=== PATIENT | male | born 1950 | race Caucasian/White ===

== ENCOUNTER → 2023-10-11 14:23 | Outpatient (REF) | payer MEDICARE, SELFPAY | LOC: RCS 14:23 | PROVIDERS: ATTENDING PHYSICIAN Internal Medicine Cardiovascular Disease | DX: I49.3 Ventricular premature depolarization (principal); I25.10 Atherosclerotic heart disease of native coronary artery without angina pectoris; I25.2 Old myocardial infarction | CPT/HCPCS: 93017; 93350 ==

== ENCOUNTER 2023-11-06 21:45 | Emergency (ER) | payer MEDICARE, SELFPAY ==
[2023-11-06 21:45] VITALS: BMI 25.0
[2023-11-06 21:46] VITALS: BP 194/98
[2023-11-06 22:08] VITALS: BP 146/78
--- NOTE | 2023-11-06 22:11 | ED.GENMED ---
History of Present Illness
<KUSH Adams - Last Filed: 11/06/23 22:29>
General
Chief Complaint: Blood Pressure Problem
Source: patient
Exam Limitations: none
Time Seen by Provider: 11/06/23 21:52
Nursing documentation reviewed up to this point in time: agreed with
Travel History
Have you had any contact with someone who has COVID-19?: No
Do you have any symptoms of coronavirus? Fever > 100 degrees, chills, cough, shortness of breath, sore throat, loss of taste or smell, muscle aches, or headache?: No
History of Present Illness
History of Present Illness:
73 y/o M with history of a fib presents to ED complaining of elevated BP at home. Patient states his BP around 1800 was 150/70 and then later in the night was 170/100. Patient states his usual readings at home are 120/80. Patient sees health and fitness professor,
Dr. Mtz, for his a fib and elevated BP. He is currently on Losaratan 50mg, Metoprolol 25mg (2 pills in morning, 1 at night), and Amiodarone 200mg. Patient states metoprolol was recently increased by his health and fitness professor due to increased palpitations
for his a fib. Patient states he took all his pills today. Losartan and Metoprolol last taken 1 hour ago. Amiodarone taken in the morning. Patient is worried about elevated BP because patient takes Eliquis and is currently being follow for yearly
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 Patient states his last MRI was last and showed no change. He also had a CT over the summer that showed no changes. Patient aneurysm is follow by his family doctor. He did report a
mild headache today but states it has since resolved. He denies chest pain, LOC, dizziness, palpitations, SOB, nausea, vomiting, or blurry vision.
If applicable-neuro sx onset
Onset of symptoms known: Yes
Date of onset of symptoms: 11/06/23
Past History
<Celeste Alanis STNM - Last Filed: 11/06/23 22:29>
Past History
ED Past Medical History: Arrthythmia (Atrial fibrillation), CAD, HTN and Other (JEANINE ANEURSYM (SMALL))
ED Past Surgical History: Cholecystectomy
Social History
Tobacco: Non-smoker
Alcohol: Occasional
Drug: None
Personal:
Living: with family
Employment: Retired
Review of Systems
<Guillaumealex Alanis NM - Last Filed: 11/06/23 22:29>
Review of Systems
Allergies reviewed?: Yes
All Other Systems: ROS reviewed and negative except as documented in HPI and ROS
Constitutional: Reports no symptoms
EENT: Reports no symptoms
Respiratory: Reports no symptoms
Cardiac: Reports no symptoms
ABD/GI: Reports no symptoms
: Reports no symptoms
Musculoskeletal: Reports no symptoms
Skin: Reports no symptoms
Neurological: Reports no symptoms
Endocrine: Reports no symptoms
Hematologic/Lymphatic: Reports no symptoms
Psychiatric: Reports no symptoms
Phy Exam
<Guillaumealex Alanis, SREEKANTH - Last Filed: 11/06/23 22:29>
General Physical Exam
General Presentation: well appearing and no apparent distress
General age: appears stated age
General Skin: warm and dry
General Habitus: normal
General Mental: alert
General Hydration: appears well hydrated
ENT Exam
ENT Exam: EOMI, pharynx normal and neck supple
Eye Exam
Eye Exam: PERRL, EOMI, cornea clear and conjunctiva normal
Cardiovascular Exam
Cardiovascular Exam: regular rate/rhythm, no edema, no gallop, no murmur and normal peripheral pulses
Pulmonary Exam
Pulmonary Exam: lungs clear, no respiratory distress, no rales, no crackles and no rhonchi
Gastrointestinal Exam
Gastrointestinal Exam: non tender, soft and non distended
Neurological Exam
Neurological Exam: alert and oriented x3
Musculoskeletal Exam
Musculoskeletal Exam: full ROM
Skin Exam
Skin Exam: normal color, warm/dry and no rash
Psychiatric Exam
Psychiatric Exam: normal mood/affect
Course
<Guillaumealex Alanis [facility] - Last Filed: 11/06/23 22:29>
Orders/Labs/Results
Orders:
Orders
11/06/23 21:50
Electrocardiogram (*1) Urgent
Reason for Study: Hypertension, Benign
EKG- Treatment ONCE
11/06/23 23:19
Complete Blood Count/With Diff Urgent
Comprehensive Metabolic Panel Urgent
Magnesium Urgent
PTT Urgent
Prothrombin Time Urgent
TSH Urgent
Troponin I Urgent
Abnormal Lab Results
11/06/23
23:19
RBC 4.37 L 10^6/uL
(4.70-6.10)
MCH 31.6 H pg
(27.0-31.0)
Absolute Neuts (auto) 8.2 H 10^3/uL
(1.4-6.5)
Absolute Monos (auto) 0.8 H 10^3/uL
(0.1-0.6)
Neutrophils % 75.4 H %
(42.2-75.2)
Lymphocytes % 14.4 L %
(20.5-51.1)
PT 16.6 H Sec
(11.4-14.6)
Sodium 134 L mmol/L
(135-145)
Glucose 116 H mg/dl
(70-99)
11/06/23 23:19
11/06/23 23:19
Vital Signs
Initial and Last Documented VS:
Initial Vital Signs
Temp Pulse Resp BP Pulse Ox
98.1 F 78 22 194/98 100
11/06/23 21:46 11/06/23 21:46 11/06/23 21:46 11/06/23 21:46 11/06/23 21:46
Last Documented Vital Signs
Temp Pulse Resp BP Pulse Ox
98.1 F 69 20 126/76 98
11/06/23 21:46 11/07/23 00:45 11/07/23 00:45 11/07/23 00:00 11/06/23 22:42
<James Walker, DO - Last Filed: 11/08/23 21:58>
Orders/Labs/Results
Orders:
Orders
11/06/23 21:50
Electrocardiogram (*1) Urgent
Reason for Study: Hypertension, Benign
EKG- Treatment ONCE
11/06/23 23:19
Complete Blood Count/With Diff Urgent
Comprehensive Metabolic Panel Urgent
Magnesium Urgent
PTT Urgent
Prothrombin Time Urgent
TSH Urgent
Troponin I Urgent
Abnormal Lab Results
11/06/23
23:19
RBC 4.37 L 10^6/uL
(4.70-6.10)
MCH 31.6 H pg
(27.0-31.0)
Absolute Neuts (auto) 8.2 H 10^3/uL
(1.4-6.5)
Absolute Monos (auto) 0.8 H 10^3/uL
(0.1-0.6)
Neutrophils % 75.4 H %
(42.2-75.2)
Lymphocytes % 14.4 L %
(20.5-51.1)
PT 16.6 H Sec
(11.4-14.6)
Sodium 134 L mmol/L
(135-145)
Glucose 116 H mg/dl
(70-99)
11/06/23 23:19
11/06/23 23:19
Vital Signs
Initial and Last Documented VS:
Initial Vital Signs
Temp Pulse Resp BP Pulse Ox
98.1 F 78 22 194/98 100
11/06/23 21:46 11/06/23 21:46 11/06/23 21:46 11/06/23 21:46 11/06/23 21:46
Last Documented Vital Signs
Temp Pulse Resp BP Pulse Ox
98.1 F 69 20 126/76 98
11/06/23 21:46 11/07/23 00:45 11/07/23 00:45 11/07/23 00:00 11/06/23 22:42
<KUSH Adams - Last Filed: 11/06/23 22:29>
MDM/Problems Addressed
Differential Diagnosis Includes:
Elevated BP
MDM/Problems Addressed:
73 y/o M with history of a fib presenting with elevated BP reading at home. Current BP in office down to 146/78. Will obtain basic labs, troponin and PTT. Patient physical exam findings unremarkable.
<James Walker DO - Last Filed: 11/08/23 21:58>
*Critical Care Note
Total Time (30-74mins, 75-104mins- exclusive of procedures): Not Applicable
ED Attending Note
<KUSH Adams - Last Filed: 11/06/23 22:29>
-
Portions of this chart may have been created with voice recognition software.� Occasional wrong word or��sound alike� substitutions may have occurred due to the inherent limitations of voice recognition software.
<James Walker DO - Last Filed: 11/08/23 21:58>
ED Attending Note
Patient seen and examined by attending physician: Yes
I performed the substantive portion of visit, reviewed & personally made and approve the management plan that is documented in note by myself or ANIYAH.: Yes
ED Attending Note:
Pleasant 73-year-old male that presents with hypertension. Patient was home today around 6 PM he took his blood pressure which was slightly elevated. He took it again few hours later noted increased. Patient was concerned. He sees Dr. JARROD Mtz,
cardiology and states that he called their office on Tuesday because he was having some palpitations and they increased his metoprolol for the weekend. Patient became very anxious over his elevated blood pressure because he states that he has a
stable aneurysm in his brain. He denies any headache or any neurological symptoms but came in because his blood pressure was elevated. He denies fever, chills, nausea or vomiting. He has been very healthy, walking 2 miles every other day with his
significant other. Upon arrival to the emergency department, his blood pressure started to return to normal. Blood pressure at time of exam was 130/60. Patient was seen in conjunction with the PA student. I have reviewed and agree with the
history and treatment plan presented. On my independent physical exam, patient is awake, alert, and oriented x3, no acute distress. Heart is regular rate and rhythm. Lungs are clear to auscultation bilaterally without wheezes rales or rhonchi
present. Abdomen soft and nondistended. Moves all 4 extremities. Cranial nerves II through XII grossly intact with out focal deficit. He is mentating appropriately. Plan is to check lab work and continue to monitor
Discharge Plan
Departure
Patient Disposition: Home (Routine Discharge)
Date of Disposition: 11/07/23
Time of Disposition: 00:39
Patient with high blood pressure during this ER visit?: Yes
Condition: Good
Discharge Problem:
Hypertension, Palpitations
Instructions: High Blood Pressure (DC), BLOOD PRESSURE
Prescriptions:
No Action
losartan [Cozaar] 50 mg Tablet
50 mg PO DAILY
magnesium 100 mg Capsule
400 mg PO DAILY
metoprolol succinate 25 mg Tablet Extended Release 24 Hr
25 mg PO BID
coenzyme Q10 [CoQ-10] 100 mg Capsule
100 mg PO DAILY
metoprolol tartrate 25 mg Tablet
25 mg PO DIRECTED PRN (Reason: 'tachycardia' )
cholecalciferol (vitamin D3) [Vitamin D3] 50 mcg (2,000 unit) Capsule
150 mcg PO DAILY
Eliquis 5 mg Tablet
5 mg PO BID
vitamin K2 100 mcg Capsule
200 mcg PO DAILY
rosuvastatin 10 mg Tablet
10 mg PO DAILY
Referrals:
NONE,* [Family Provider] -
Esteban Mtz MD [Active] - Next open appointment
Activity Restrictions/Additional Instructions:
As discussed, follow-up with Dr. Mtz to review your hypertensive medications.
It was a pleasure meeting you and taking part in your care. We hope for your continued healing and wellness.
Please read discharge instructions in their entirety. However, they are for general education and may not describe your exact diagnosis at discharge. Information on your ER visit and medical conditions were discussed with you along with appropriate
follow up information...
If indicated, please take your medications as instructed and indicated on discharge paperwork.
Please schedule a follow up appointment as directed. Call to schedule an appointment
Please return to the emergency department with ANY change in, persisting, or worsening of symptoms. If any of your symptoms do not improve, or persist, or become more severe within 6-12 hours, please return to the emergency department for further
care.
Please return to the emergency department if you develop a headache, neck pain/stiffness, fever greater than 100.4F, chest pain, shortness of breath, persistent nausea, vomiting, slurred speech, difficulty walking, numbness/tingling, weakness, signs
of infection or any other symptoms that are worrisome to you.
If you have any questions or concerns please do not hesitate to call the Hospital at or E-mail me directly at [email or web address]
Interventions
Interventions:
*Risk Screen - Suicide Last Done: 11/06/23 21:46
*General Assessment Last Done: 11/06/23 22:12
*Neglect/Abuse Screening Last Done: 11/06/23 21:46
ED- Fall Risk Assessment Last Done: 11/06/23 22:39
*ED COVID-19 Vaccine History Last Done: 11/06/23 22:12
*Nursing Disposition Last Done: 11/07/23 00:59
ED- Cardiac Assessment Last Done: 11/06/23 22:39
ED- Neurological Assessment Last Done: 11/06/23 22:39
ED- Pulmonary Assessment Last Done: 11/06/23 22:42
Discharge Date and Time
Discharge Date/Time: 11/07/23 01:03
[2023-11-06 23:00] VITALS: BP 131/60
[2023-11-06 23:27] LABS: % Basophils 0.6 % (0-2); % Eosinophils 1.8 % (0-6); % Immature Granulocytes 0.4 % (0-0.5); % Lymphocytes 14.4 % (20.5-51.1); % Monocytes 7.4 % (1.7-9.3); % Neutrophils 75.4 % (42.2-75.2); Absolute Basophils 0.1 10^3/uL (0-0.2); Absolute Eosinophils 0.2 10^3/uL (0-0.7); Absolute Lymphocytes 1.6 10^3/uL (1.2-3.4); Absolute Monocytes 0.8 10^3/uL (0.1-0.6); Absolute Neutrophils 8.2 10^3/uL (1.4-6.5); Hemoglobin 13.8 g/dL (13.0-18.0); Mean Corp Hgb Conc. 35.4 g/dL (33.0-37.0); Mean Corpuscular Hgb 31.6 pg (27.0-31.0); Mean Corpuscular Volume 89.2 fL (80.0-94.0); Mean Platelet Volume 9.8 fL (7.4-10.4); Nucleated Red Blood Cells % 0 % (-); Platelet Count 233 10^3/uL (130-400); Red Blood Cell Count 4.37 10^6/uL (4.70-6.10); Red Cell Dist. Width 12.6 % (11.5-14.5); White Blood Cell Count 10.8 10^3/uL (4.8-10.8)
[2023-11-06 23:42] LABS: INR 1.36; PT 16.6 Sec (11.4-14.6)
[2023-11-06 23:43] LABS: APTT 34.7 Sec (23.4-35.0)
[2023-11-06 23:44] LABS: ALT (SGPT) 27 U/L (0-50); AST (SGOT) 30 U/L (17-59); Albumin 4.4 g/dl (3.5-5.0); Alkaline Phosphatase 82 U/L (38-126); Blood Urea Nitrogen 17 mg/dl (9-20); Calcium 9.5 mg/dl (8.4-10.2); Carbon Dioxide 26 mmol/L (22-30); Chloride 103 mmol/L (98-107); Estimated Creatinine Clearance 74 ml/min; Glucose 116 mg/dl (70-99); Magnesium 2.3 mg/dl (1.6-2.3); Potassium 4.7 mmol/L (3.5-5.1); Sodium 134 mmol/L (135-145); Total Bilirubin 0.7 mg/dl (0.2-1.3); Total Protein 7.5 g/dl (6.3-8.2); eGFR > 60.00
[2023-11-06 23:56] LABS: Troponin I 0.012 ng/ml
[2023-11-07] VITALS: BP 126/76
[2023-11-07 00:26] LABS: TSH 3.22 uIU/ml (0.47-4.68)
== END 2023-11-07 01:03 | disposition home or self-care (01) ==
LOC: EMR 21:45
PROVIDERS: EMERGENCY PHYSICIAN Student in an Organized Health Care Education/Training Program
DX: I10 Essential (primary) hypertension (principal); R00.2 Palpitations; R51.9 Headache, unspecified; I48.91 Unspecified atrial fibrillation; I25.10 Atherosclerotic heart disease of native coronary artery without angina pectoris; I72.9 Aneurysm of unspecified site; E78.5 Hyperlipidemia, unspecified; G47.30 Sleep apnea, unspecified; I25.2 Old myocardial infarction; Z95.5 Presence of coronary angioplasty implant and graft; Z86.16 Personal history of COVID-19; Z85.828 Personal history of other malignant neoplasm of skin; Z79.01 Long term (current) use of anticoagulants; Z90.49 Acquired absence of other specified parts of digestive tract
CPT/HCPCS: 99283; 80053; 83735; 84443; 84484; 85025; 85610; 85730; 93005

== ENCOUNTER → 2024-02-13 08:23 | Outpatient (REF) | payer MEDICARE, SELFPAY ==
[2024-02-13 10:08] LABS: ALT (SGPT) 25 U/L (0-50); AST (SGOT) 30 U/L (17-59); Albumin 4.4 g/dl (3.5-5.0); Alkaline Phosphatase 76 U/L (38-126); Blood Urea Nitrogen 17 mg/dl (9-20); Calcium 9.8 mg/dl (8.4-10.2); Carbon Dioxide 24 mmol/L (22-30); Chloride 103 mmol/L (98-107); Direct Bilirubin 0.4 mg/dl (0.0-0.4); Glucose 108 mg/dl (70-99); Potassium 4.7 mmol/L (3.5-5.1); Sodium 136 mmol/L (135-145); Total Bilirubin 0.8 mg/dl (0.2-1.3); Total Protein 7.2 g/dl (6.3-8.2); eGFR > 60.00
[2024-02-13 10:38] LABS: TSH 1.86 uIU/ml (0.47-4.68)
== END ==
LOC: RAD 08:23
PROVIDERS: ATTENDING PHYSICIAN Internal Medicine Cardiovascular Disease
DX: I48.0 Paroxysmal atrial fibrillation (principal); Z79.899 Other long term (current) drug therapy; R74.01 Elevation of levels of liver transaminase levels
CPT/HCPCS: 36415; 71046; 80053; 82248; 84443

== ENCOUNTER 2024-03-17 12:57 | Emergency (ER) | payer MEDICARE, SELFPAY ==
[2024-03-17 12:58] VITALS: BP 139/87
[2024-03-17 13:21] LABS: % Basophils 0.9 % (0-2); % Eosinophils 2.9 % (0-6); % Immature Granulocytes 0.3 % (0-0.5); % Lymphocytes 33.7 % (20.5-51.1); % Monocytes 10.6 % (1.7-9.3); % Neutrophils 51.6 % (42.2-75.2); Absolute Basophils 0.1 10^3/uL (0-0.2); Absolute Eosinophils 0.3 10^3/uL (0-0.7); Absolute Lymphocytes 3.1 10^3/uL (1.2-3.4); Absolute Neutrophils 4.8 10^3/uL (1.4-6.5); Hematocrit 40.3 % (39.0-52.0); Mean Corp Hgb Conc. 34.7 g/dL (33.0-37.0); Mean Corpuscular Hgb 31.8 pg (27.0-31.0); Mean Corpuscular Volume 91.6 fL (80.0-94.0); Mean Platelet Volume 9.9 fL (7.4-10.4); Nucleated Red Blood Cells % 0 % (-); Platelet Count 225 10^3/uL (130-400); White Blood Cell Count 9.3 10^3/uL (4.8-10.8)
[2024-03-17 13:35] LABS: ALT (SGPT) 21 U/L (0-50); AST (SGOT) 23 U/L (17-59); Albumin 4.4 g/dl (3.5-5.0); Alkaline Phosphatase 82 U/L (38-126); Blood Urea Nitrogen 21 mg/dl (9-20); Calcium 9.8 mg/dl (8.4-10.2); Carbon Dioxide 28 mmol/L (22-30); Chloride 100 mmol/L (98-107); Glucose 186 mg/dl (70-99); Sodium 136 mmol/L (135-145); Total Bilirubin 0.5 mg/dl (0.2-1.3); eGFR > 60.00
[2024-03-17 13:46] LABS: Troponin I < 0.012 ng/ml
--- NOTE | 2024-03-17 14:22 | ED.GENMED ---
History of Present Illness
General
Chief Complaint: Extremity Pain (non-traumatic)
Time Seen by Provider: 03/17/24 14:21
History of Present Illness
History of Present Illness:
HPI: Patient presents with left arm pain that started yesterday. He uses 1 finger to point to the left mid biceps region. He has no chest pain or shortness of breath or diaphoresis. He cannot reproduce the pain earlier so he came in here for
further evaluation. The patient has known CAD but reports unchanged abnormal stress echo from earlier this year. A few weeks ago he had right periscapular pain which has been resolved. He states he did recently break out 9 tons of gravel.
EXAM:
GENERAL: Well appearing in no distress
HEENT: Moist oral mucosa
CARDIOVASCULAR: No murmurs, normal heart rate, regular rhythm, No chest wall tenderness, equally palpable radial pulses
PULMONARY: No respiratory distress, breath sounds are clear and equal
ABDOMEN: Soft with no peritoneal signs, no tenderness
NEUROLOGIC: Excellent strength all extremities, no coordination deficits
PSYCHIATRIC: Appropriate mental status, normal insight and judgement
EXTREMITIES: Nontender, no edema, moves all extremities equally, as he flexed the left elbow against resistance and as I use my finger to push at the mid biceps he did experience pain
SKIN: No rash, no lesions
TIME OF INITIAL ENCOUNTER: 2:20 PM
NUMBER AND COMPLEXITY OF PROBLEMS ADDRESSED AT THE ENCOUNTER
� Chronic conditions affecting care: A-fib on Eliquis, CAD, high blood pressure, hyperlipidemia, CAD/OH with coronary stents, skin cancer
� Acute Exacerbation and/or Progression of Chronic Illness: This is an acute problem
� Differential Diagnosis includes: ACS very unlikely as this feels nothing like the time that he had a heart attack and troponin negative despite 24 hours of symptoms, bicep strain
AMOUNT AND/OR COMPLEXITY OF DATA TO BE REVIEWED AND ANALYZED
� I performed an independent evaluation of and my interpretation is:
EKG: Sinus 74, left axis deviation, there is mild ST depression in the inferior leads similar but slightly more prominent in comparison to the EKG from 11/06/2023
CT:
X-rays:
Laboratory Studies: CBC unremarkable, chemistries including troponin unremarkable
Other:
� Review of other/old records: The patient had struck echo 10/11/2023 that showed regional wall motion abnormalities at baseline with evidence of ischemia in the apical inferior and lateral segments consistent with the patient's
occluded obtuse marginal coronary artery, there was inconclusive ST segment response to exercise, EF was 45
� Clinical information was obtained by an independent historian: None needed
� Prescriptions/Medications Considered but not given:
� Further testing considered but not performed: No clear indication for x-rays at this time
RISK OF COMPLICATIONS AND/OR MORBIDITY OR MORTALITY OF PATIENT MANAGEMENT
� Social determinants of health affecting care: Lives at home
� Discussion with other providers: Sent Dr. Mtz the EKGs for review.
� Escalation of care including admission/observation vs risk of discharge considered: The patient appears very comfortable and workup unremarkable however the EKG is just very slightly change compared to prior regarding the ST
depression in the inferior lead. Second troponin obtained at Dr. Mtz's request which was also less than 0.012. Repeat EKG was also obtained and reviewed with Dr. Mtz. Patient is eager to go home. No change in his clinical condition. On
reevaluation at 3:50 PM, the has been no change in his clinical condition. Dr. Mtz agrees with close outpatient follow-up and says that his office will call him for follow-up
Past History
Past History
ED Past Medical History: Arrthythmia (Atrial fibrillation), CAD, HTN and Other (JEANINE ANEURSYM (SMALL))
ED Past Surgical History: Cholecystectomy
Social History
Tobacco: Non-smoker
Alcohol: Occasional
Drug: None
Personal:
Living: with family
Employment: Retired
Phy Exam
Physical Exam
Physical Exam:
See HPI
Course
Orders/Labs/Results
Orders:
Orders
03/17/24 13:00
Electrocardiogram (*1) Urgent
Reason for Study: Chest Pain
EKG- Treatment ONCE
03/17/24 13:10
Complete Blood Count/With Diff Urgent
Comprehensive Metabolic Panel Urgent
Troponin I Urgent
03/17/24 14:51
Electrocardiogram (*1) Urgent
Reason for Study: Chest Pain
EKG- Treatment ONCE
03/17/24 15:03
Troponin I Urgent
Abnormal Lab Results
03/17/24
13:10
RBC 4.40 L 10^6/uL
(4.70-6.10)
MCH 31.8 H pg
(27.0-31.0)
Absolute Monos (auto) 1.0 H 10^3/uL
(0.1-0.6)
Monocytes % 10.6 H %
(1.7-9.3)
BUN 21 H mg/dl
(9-20)
Glucose 186 H mg/dl
(70-99)
03/17/24 13:10
03/17/24 13:10
Vital Signs
Initial and Last Documented VS:
Initial Vital Signs
Temp Pulse Resp BP Pulse Ox
98.0 F 74 18 139/87 100
03/17/24 12:58 03/17/24 12:58 03/17/24 12:58 03/17/24 12:58 03/17/24 12:58
Last Documented Vital Signs
Temp Pulse Resp BP Pulse Ox
98.0 F 74 18 139/87 100
03/17/24 12:58 03/17/24 12:58 03/17/24 12:58 03/17/24 12:58 03/17/24 12:58
*Critical Care Note
Total Time (30-74mins, 75-104mins- exclusive of procedures): Not Applicable
ED Attending Note
-
Portions of this chart may have been created with voice recognition software.� Occasional wrong word or��sound alike� substitutions may have occurred due to the inherent limitations of voice recognition software.
Discharge Plan
Departure
Patient Disposition: Home (Routine Discharge)
Date of Disposition: 03/17/24
Time of Disposition: 16:03
Patient with high blood pressure during this ER visit?: Yes
Discharge Problem:
Arm pain, left
Prescriptions:
No Action
losartan [Cozaar] 50 mg Tablet
50 mg PO DAILY
magnesium 100 mg Capsule
400 mg PO DAILY
metoprolol succinate 25 mg Tablet Extended Release 24 Hr
25 mg PO BID
coenzyme Q10 [CoQ-10] 100 mg Capsule
100 mg PO DAILY
metoprolol tartrate 25 mg Tablet
25 mg PO DIRECTED PRN (Reason: 'tachycardia' )
cholecalciferol (vitamin D3) [Vitamin D3] 50 mcg (2,000 unit) Capsule
150 mcg PO DAILY
Eliquis 5 mg Tablet
5 mg PO BID
vitamin K2 100 mcg Capsule
200 mcg PO DAILY
rosuvastatin 10 mg Tablet
10 mg PO DAILY
Referrals:
PRIVATE,PHYSICIAN [Family Provider] -
Esteban Mtz MD [Active] - Follow up in 2-3 days
Activity Restrictions/Additional Instructions:
2 sets of cardiac blood work (troponins) are both normal. I shared the EKGs with Dr. Mtz. He said that his office will call you for follow-up. Return here if worse.
Discharge Date and Time
Print Language: PORTUGUESE
[2024-03-17 15:41] LABS: Troponin I < 0.012 ng/ml
[2024-03-17 16:55] VITALS: BP 137/80
== END 2024-03-17 16:56 | disposition home or self-care (01) ==
LOC: EMR 12:57
PROVIDERS: Emergency Medicine; EMERGENCY PHYSICIAN Emergency Medicine
DX: M79.602 Pain in left arm (principal); I10 Essential (primary) hypertension; I25.10 Atherosclerotic heart disease of native coronary artery without angina pectoris
CPT/HCPCS: 99284; 80053; 84484; 85025; 93005

== ENCOUNTER → 2024-06-21 14:43 | Outpatient (REF) | payer MEDICARE, SELFPAY | LOC: RCS 14:43 | PROVIDERS: ATTENDING PHYSICIAN Internal Medicine Cardiovascular Disease | DX: I25.10 Atherosclerotic heart disease of native coronary artery without angina pectoris (principal); I49.3 Ventricular premature depolarization; I25.5 Ischemic cardiomyopathy | CPT/HCPCS: 93306 ==

== ENCOUNTER → 2024-11-05 08:27 | Outpatient (REF) | payer MEDICARE, SELFPAY ==
[2024-11-05 10:40] LABS: ALT (SGPT) 44 U/L (0-50); AST (SGOT) 35 U/L (17-59); Albumin 4.8 g/dl (3.5-5.0); Alkaline Phosphatase 78 U/L (38-126); Blood Urea Nitrogen 19 mg/dl (9-20); Carbon Dioxide 24 mmol/L (22-30); Chloride 99 mmol/L (98-107); Glucose 105 mg/dl (70-99); HDL Cholesterol 43 mg/dl; LDL Cholesterol, Calculated 54 mg/dl; Potassium 4.5 mmol/L (3.5-5.1); Sodium 134 mmol/L (135-145); Total Bilirubin 0.9 mg/dl (0.2-1.3); Total Cholesterol 113 mg/dl (50-199); Total Protein 7.4 g/dl (6.3-8.2); Triglyceride 81 mg/dl (10-149); Very Low Density Lipoprotein 16 mg/dl (0-30); eGFR > 60.00
== END ==
LOC: RAD 08:27
PROVIDERS: ATTENDING PHYSICIAN Internal Medicine Cardiovascular Disease
DX: Z79.899 Other long term (current) drug therapy (principal); I49.3 Ventricular premature depolarization; I48.0 Paroxysmal atrial fibrillation; I25.10 Atherosclerotic heart disease of native coronary artery without angina pectoris; E78.00 Pure hypercholesterolemia, unspecified
CPT/HCPCS: 36415; 71046; 80053; 80061; 84443

== ENCOUNTER → 2024-11-22 11:24 | Outpatient (REF) | payer MEDICARE, SELFPAY | LOC: HWRCS 11:24 | PROVIDERS: ATTENDING PHYSICIAN Internal Medicine Cardiovascular Disease | DX: I49.3 Ventricular premature depolarization (principal); I25.10 Atherosclerotic heart disease of native coronary artery without angina pectoris; I25.2 Old myocardial infarction | CPT/HCPCS: 78452; 93017; A9500 ==

== ENCOUNTER → 2024-12-07 07:12 | Outpatient (REF) | payer MEDICARE, SELFPAY | LOC: HWRCS 07:12 | PROVIDERS: ATTENDING PHYSICIAN Internal Medicine Cardiovascular Disease | DX: I25.10 Atherosclerotic heart disease of native coronary artery without angina pectoris (principal); I25.5 Ischemic cardiomyopathy; I25.2 Old myocardial infarction | CPT/HCPCS: 93306 ==

== ENCOUNTER 2025-01-10 07:10 | Day surgery (SDC) | payer MEDICARE, SELFPAY | END 2025-01-10 10:59 | disposition home or self-care (01) | LOC: CATH 07:10 | PROVIDERS: ATTENDING PHYSICIAN Internal Medicine Cardiovascular Disease; FAMILY PHYSICIAN Family Medicine; OTHER PHYSICIAN Internal Medicine Cardiovascular Disease | DX: I08.1 Rheumatic disorders of both mitral and tricuspid valves (principal); I70.0 Atherosclerosis of aorta | CPT/HCPCS: 93312; 93320; 93325 ==

== ENCOUNTER → 2025-04-29 13:27 | Outpatient (REF) | payer MEDICARE, SELFPAY ==
[2025-04-29 15:03] LABS: ALT (SGPT) 29 U/L (0-50); AST (SGOT) 28 U/L (17-59); Albumin 4.3 g/dl (3.5-5.0); Alkaline Phosphatase 72 U/L (38-126); Blood Urea Nitrogen 22 mg/dl (9-20); Calcium 9.1 mg/dl (8.4-10.2); Carbon Dioxide 26 mmol/L (22-30); Chloride 103 mmol/L (98-107); Glucose 93 mg/dl (70-99); Potassium 4.7 mmol/L (3.5-5.1); Sodium 135 mmol/L (135-145); Total Protein 7.0 g/dl (6.3-8.2); eGFR > 60.00
[2025-04-29 15:34] LABS: TSH 2.84 uIU/ml (0.47-4.68)
== END ==
LOC: REG 13:27
PROVIDERS: ATTENDING PHYSICIAN Internal Medicine Cardiovascular Disease
DX: I48.0 Paroxysmal atrial fibrillation (principal); I10 Essential (primary) hypertension; E78.00 Pure hypercholesterolemia, unspecified; Z79.899 Other long term (current) drug therapy
CPT/HCPCS: 36415; 71046; 80053; 84443